=== PATIENT | female | born 1995 | race Caucasian/White ===

== ENCOUNTER 2020-02-01 04:02 | Emergency (ER) | payer OTHER ==
--- NOTE | 2020-02-01 04:10 | PDOC ---
History of Present Illness - General History Source: Patient - History of Present Illness Initial Comments: 02/01/20 04:42 24 y.o. F no significant PMHx presenting due to abdominal pain. Patient states she has been having abdominal pain for the past 3 weeks. She stated the pain is located in the lower abdomen, is sharp nonradiating and is worse upon positional changes and deep inspiration. Patient reports she had a transvaginal ultrasound at her [facility] that stated she did not have an intrauterine and there was concern for an ectopic, At this time a beta-hcg was drawn. Patient states she had 1 episode of diarrhea yesterday non bloody. Patient denies headache N/V. Patient states she has not had any bloody shows or discolored urine. Patient states her next obstetrician/gynecologist appointment is Sunday. PCP: Alvaro Specialist: Line Up Worker is Dr. Martins ([phone]) PMHx: None Meds: In Chart Allergies: NKDA 02/01/20 05:55 Is this a multiple visit Asthma Patient?: No Timing/Duration: constant Severity: mild <Eugenio Whaley - Last Filed: 02/01/20 05:51> <Tyrese Ronquillo - Last Filed: 02/01/20 09:48> - General Chief Complaint: Pain, Acute Stated Complaint: ABDOMINAL PAIN Time Seen by Provider: 02/01/20 04:42 Past History <Eugenio Whaley - Last Filed: 02/01/20 05:51> <Tyrese Ronquillo - Last Filed: 02/01/20 09:48> - Medical History Allergies/Adverse Reactions: Allergies Allergy/AdvReac Type Severity Reaction Status Date / Time No Known Allergies Allergy Verified 02/01/20 04:09 Home Medications: Ambulatory Orders NK [No Known Home Medication] 02/01/20 Review of Systems - Review of Systems Able to Perform ROS?: Yes Is the patient limited Slovak proficient: No Constitutional: No: Chills, Fever HEENTM: No: Blurred Vision, Double Vision Respiratory: No: Cough, Shortness of Breath Cardiac (ROS): No: Chest Pain, Lightheadedness ABD/GI: Yes: Other (Pain in the lower abdomen). No: Constipated, Diarrhea, Nausea, Vomiting : No: Burning, Dysuria Musculoskeletal: No: Back Pain, Joint Pain Integumentary: No: Bruising, Rash Neurological: No: Numbness, Tremors, Dizziness Hematologic/Lymphatic: No: Easy Bleeding, Easy Bruising <Eugenio Whaley - Last Filed: 02/01/20 05:51> *Physical Exam - Physical Exam General Appearance: Yes: Nourished, Appropriately Dressed. No: Apparent Distress Respiratory/Chest: positive: Lungs Clear, Normal Breath Sounds. negative: Chest Tender, Accessory Muscle Use, Crackles, Rales, Stridor, Wheezing Cardiovascular: positive: Regular Rhythm, Regular Rate. negative: Edema, JVD, Murmur Gastrointestinal/Abdominal: positive: Normal Bowel Sounds, Tender, Flat, Soft, Tenderness (suprapubic and RLQ). negative: Distended, Guarding, Rebound Musculoskeletal: positive: Normal Inspection. negative: CVA Tenderness Extremity: positive: Normal Inspection. negative: Tender, Swelling, Calf Tenderness Integumentary: positive: Normal Color, Dry, Warm Neurologic: positive: Fully Oriented, Alert, Normal Mood/Affect, Normal Response <JuddEugenio - Last Filed: 02/01/20 05:51> - Vital Signs Last Vital Signs Temp Pulse Resp BP Pulse Ox 98.4 F 74 18 99/62 100 02/01/20 06:28 02/01/20 06:28 02/01/20 06:28 02/01/20 06:28 02/01/20 06:28 <RonquilloTyrese - Last Filed: 02/01/20 09:48> ED Treatment Course - LABORATORY CBC & Chemistry Diagram: 02/01/20 05:40 02/01/20 05:40 - ADDITIONAL ORDERS Additional order review: Laboratory Results 02/01/20 02/01/20 02/01/20 07:00 05:40 05:40 PT with INR INR PTT (Actin FS) Sodium Potassium Chloride Carbon Dioxide Anion Gap BUN Creatinine Est GFR (CKD-EPI)AfAm Est GFR (CKD-EPI)NonAf Random Glucose Calcium Total Bilirubin AST ALT Alkaline Phosphatase Total Protein Albumin Beta HCG, Quant 3294.4 Urine Color Yellow Urine Appearance Clear Urine pH 8.0 Ur Specific [place] 1.005 L Urine Protein Negative Urine Glucose (UA) Negative Urine Ketones Negative Urine Blood Negative Urine Nitrite Negative Urine Bilirubin Negative Urine Urobilinogen 0.2 Ur Leukocyte Esterase Negative Blood Type O POSITIVE Antibody Screen Negative 02/01/20 02/01/20 05:40 05:40 PT with INR 12.80 INR 1.08 PTT (Actin FS) 32.3 Sodium 141 Potassium 4.8 Chloride 109 H Carbon Dioxide 28 Anion Gap 4 L BUN 8.9 Creatinine 0.7 Est GFR (CKD-EPI)AfAm 140.55 Est GFR (CKD-EPI)NonAf 121.27 Random Glucose 88 Calcium 9.0 Total Bilirubin 0.3 AST 14 L ALT 15 Alkaline Phosphatase 54 Total Protein 6.8 Albumin 3.8 Beta HCG, Quant Urine Color Urine Appearance Urine pH Ur Specific [place] Urine Protein Urine Glucose (UA) Urine Ketones Urine Blood Urine Nitrite Urine Bilirubin Urine Urobilinogen Ur Leukocyte Esterase Blood Type Antibody Screen 02/01/20 05:40 RBC 4.27 MCV 90.9 MCHC 34.6 RDW 12.8 MPV 8.3 Neutrophils % 69.2 Lymphocytes % 20.5 Monocytes % 8.6 Eosinophils % 1.4 Basophils % 0.3 - Medications Given in the ED: ED Medications Discontinued Medications Generic Name Dose Route Start Last Admin Trade Name Kevin PRN Reason Stop Dose Admin Acetaminophen 1,000 mg 02/01/20 04:19 02/01/20 05:30 Ofirmev Injection - IVPB 02/01/20 04:20 1,000 mg ONCE ONE Administration <Tyrese Ronquillo - Last Filed: 02/01/20 09:48> Medical Decision Making - Medical Decision Making 02/01/20 04:49 24 y.o. F no significant PMHx presenting due to abdominal pain. DDx: Ectopic , appendicitis, cholecystitis, IBD, gallstone, UTI, kidney stone Labs: TVUS: EKG: Dispo: 02/01/20 05:55 <Eugenio Whaley - Last Filed: 02/01/20 05:51> Discharge <Eugenio Whaley - Last Filed: 02/01/20 05:51> - Discharge Information Problems reviewed: Yes <Tyrese Ronquillo - Last Filed: 02/01/20 09:48> - Discharge Information Clinical Impression/Diagnosis: Abdominal pain during intrauterine Condition: Good Disposition: HOME - Follow up/Referral Referrals: Kemi John MD [Primary Care Provider] - - Patient Discharge Instructions Additional Instructions: You were seen in the ED for complaints of abdominal pain with . In the ED you were evaluated with urine analysis and transvaginal . You urine analysis is normal. The result of the ultrasound showed a single intrauterine gestational sac like structure with 5 weeks 1 day of gestation ( you have one sac inside your uterus, which is what you wanted). A tiny yolk sac is probably identified. No pole or heart activity could be detected. Need to follow up with serial quantitative serum beta hCG and close follow up ultrasound is recommended. They also found 8mm hypoechoic density in the left ovary likely represenitng a hemorrhagic cyst/corpus luteum cyst. Need to follow up with Obgyn. Recently, you did an ultrasound. They didn't find anything. Now they found a single gestational sac. This could be a normal progression of the . The current Beta hCG level is 3294. There does not appear to be an acute need for immediate hospitalization. You are advised to follow up with your Obgyn doctor (Lakshmi) within the next 24 hours or come back here in the next two days for a nother beta hCG blood test. Return to the ED immediately if you experience worsening abdominal pain or severe vaginal bleeding ( soaking 3 pads within 1 hour for 3 hours straight), dizziness, nausea, vomiting. La atendieron en el servicio de urgencias por quejas de dolor abdominal destinee el embarazo. En el servicio de urgencias te evaluaron con anlisis de orina y embarazo transvaginal. Parra anlisis de orina es normal. El resultado de la ecografa mostr tiffanie nathalie estructura intrauterina similar a un saco gestacional con 5 semanas y 1 da de gestacin (tienes un saco dentro de tu tero, que es lo que queras). Probablemente se identifique un pequeo saco vitelino. No se pudo detectar ningn polo o actividad cardaca . Se recomienda realizar un seguimiento con beta hCG srica cuantitativa seriada y tiffanie ecografa de seguimiento cercana. Tambin encontraron tiffanie densidad hipoecoica de 8 mm en el ovario obinna que probablemente representa un quiste hemorrgico / quiste del cuerpo lteo. Necesito hacer un seguimiento con Obgyn. Recientemente, hiciste tiffanie ecografa. No encontraron nada. Ahora encontraron un solo saco gestacional. Esta podra ser tiffanie progresin normal del embarazo. El nivel actual de Beta hCG es 3294. No parece seda tiffanie necesidad aguda de hospitalizacin inmediata. Se le recomienda hacer un seguimiento con parra mdico de Obgyn (Lakshmi) dentro de las prximas 24 horas o regresar aqu en los prximos dos [place] para hacerse otro anlisis de kindra beta hCG. Regrese al servicio de urgencias inmediatamente si experimenta un empeoramiento del dolor abdominal o sangrado vaginal darby (remojar 3 toallas sanitarias en 1 hora destinee 3 horas seguidas), mareos, nuseas, vmitos.
[2020-02-01 04:13] VITALS: BMI 21.2
[2020-02-01] MEDS ORDERED: ACETAMINOPHEN 1000 MG/100 ML VIAL (NON FORMULARY) IVPB ONE (04:19)
--- NOTE | 2020-02-01 04:46 | PDOC ---
Attending Attestation - Resident Resident Name: Eugenio Whaley - ED Attending Attestation I have performed the following: I have examined & evaluated the patient, The case was reviewed & discussed with the resident, I agree w/resident's findings & plan - HPI HPI: 02/01/20 05:52 Pt comes with lower abdominal pain. States that she alejandro to another ER 2 days ago. They told her she was . Pt continued to have pain so she went [facility] yesterday and they told her she was , and sono showed no baby in the uterus. She may have an ectopic. Pt was asked to return on Sunday. Instead, pt came here because she has continued pain, she has constipation and some diarrhea and she has gas. But she is eating the same stuff as her and he has none of this. 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 - Physicial Exam PE: 02/01/20 05:56 Normal exam gassy abdomen bloated abdomen suprapubic pain no flank pain no fever normal extremities - Medical Decision Making 02/01/20 05:57 Labs pending SONO to be done type and screen pending UA pending 02/01/20 21:33 SIGNED OUT TO DAY TEAM Discharge - Discharge Information Problems reviewed: Yes Clinical Impression/Diagnosis: Abdominal pain during intrauterine Condition: Good Disposition: HOME - Follow up/Referral Referrals: Bella Martins MD [Staff Physician] - Kemi John MD [Primary Care Provider] - - Patient Discharge Instructions Additional Instructions: You were seen in the ED for complaints of abdominal pain with . In the ED you were evaluated with urine analysis and transvaginal . You urine analysis is normal. The result of the ultrasound showed a single intrauterine gestational sac like structure with 5 weeks 1 day of gestation ( you have one sac inside your uterus, which is what you wanted). A tiny yolk sac is probably identified. No pole or heart activity could be detected. Need to follow up with serial quantitative serum beta hCG and close follow up ultrasound is recommended. They also found 8mm hypoechoic density in the left ovary likely represenitng a hemorrhagic cyst/corpus luteum cyst. Need to follow up with Obgyn. Recently, you did an ultrasound. They didn't find anything. Now they found a single gestational sac. This could be a normal progression of the . The current Beta hCG level is 3294. There does not appear to be an acute need for immediate hospitalization. You are advised to follow up with your Obgyn doctor (Lakshmi) within the next 24 hours or come back here in the next two days for a nother beta hCG blood test. Return to the ED immediately if you experience worsening abdominal pain or severe vaginal bleeding ( soaking 3 pads within 1 hour for 3 hours straight), dizziness, nausea, vomiting. La atendieron en el servicio de urgencias por quejas de dolor abdominal destinee el embarazo. En el servicio de urgencias te evaluaron con anlisis de orina y embarazo transvaginal. Parra anlisis de orina es normal. El resultado de la ecografa mostr tiffanie nathalie estructura intrauterina similar a un saco gestacional con 5 semanas y 1 da de gestacin (tienes un saco dentro de tu tero, que es lo que queras). Probablemente se identifique un pequeo saco vitelino. No se pudo detectar ningn polo o actividad cardaca . Se recomienda realizar un seguimiento con beta hCG srica cuantitativa seriada y tiffanie ecografa de seguimiento cercana. Tambin encontraron tiffanie densidad hipoecoic a de 8 mm en el ovario obinna que probablemente representa un quiste hemorrgico / quiste del cuerpo lteo. Necesito hacer un seguimiento con Obgyn. Recientemente, hiciste tiffanie ecografa. No encontraron nada. Ahora encontraron un solo saco gestacional. Esta podra ser tiffanie progresin normal del embarazo. El nivel actual de Beta hCG es 3294. No parece seda tiffanie necesidad aguda de hospitalizacin inmediata. Se le recomienda hacer un seguimiento con parra mdico de Obgyn (Lakshmi) dentro de las prximas 24 horas o regresar aqu en los prximos dos [place] para hacerse otro anlisis de kindra beta hCG. Regrese al servicio de urgencias inmediatamente si experimenta un empeoramiento del dolor abdominal o sangrado vaginal darby (remojar 3 toallas sanitarias en 1 hora destinee 3 horas seguidas), mareos, nuseas, vmitos. - Post Discharge Activity
[2020-02-01 06:29] VITALS: BP 99/62; PULSE 74; TEMP 98.4
[2020-02-01 06:52] LABS: BASO % 0.3 % (0-2.0); EOS % 1.4 % (0-4.5); HEMATOCRIT 38.9 % (32.4-45.2); HEMOGLOBIN 13.4 GM/dL (10.7-15.3); LYMPH % 20.5 % (8-40); MCH 31.4 pg (25.7-33.7); MCHC 34.6 g/dl (32.0-36.0); MEAN CELL VOLUME 90.9 fl (80-96); MEAN PLT VOLUME 8.3 fl (7.5-11.1); MONO % 8.6 % (3.8-10.2); NEUT % 69.2 % (42.8-82.8); PLATELET COUNT 273 K/MM3 (134-434); RBC 4.27 M/mm3 (3.60-5.2); RDW 12.8 % (11.6-15.6); WHITE BLOOD COUNT 8.8 K/mm3 (4.0-10.0)
[2020-02-01 06:57] LABS: ALBUMIN 3.8 g/dl (3.4-5.0); BILIRUBIN,TOTAL 0.3 mg/dL (0.2-1); BLOOD UREA NITROGEN 8.9 mg/dL (7-18); CREATININE 0.7 mg/dL (0.55-1.3); POTASSIUM 4.8 mmol/L (3.5-5.1); TOT PROT 6.8 g/dl (6.4-8.2)
[2020-02-01 07:05] LABS: INR 1.08 (0.83-1.09); PROTHROMBIN TIME (PATIENT) 12.8 SEC (9.7-13.0)
[2020-02-01 07:08] LABS: ACTIVATED PTT 32.3 SECONDS (25.2-36.5)
--- NOTE | 2020-02-01 08:11 | PDOC ---
*Physical Exam - Vital Signs Last Vital Signs Temp Pulse Resp BP Pulse Ox 98.4 F 74 18 99/62 100 02/01/20 06:28 02/01/20 06:28 02/01/20 06:28 02/01/20 06:28 02/01/20 06:28 ED Treatment Course - LABORATORY CBC & Chemistry Diagram: 02/01/20 05:40 02/01/20 05:40 - ADDITIONAL ORDERS Additional order review: Laboratory Results 02/01/20 02/01/20 02/01/20 05:40 05:40 05:40 PT with INR INR PTT (Actin FS) Sodium 141 Potassium 4.8 Chloride 109 H Carbon Dioxide 28 Anion Gap 4 L BUN 8.9 Creatinine 0.7 Est GFR (CKD-EPI)AfAm 140.55 Est GFR (CKD-EPI)NonAf 121.27 Random Glucose 88 Calcium 9.0 Total Bilirubin 0.3 AST 14 L ALT 15 Alkaline Phosphatase 54 Total Protein 6.8 Albumin 3.8 Beta HCG, Quant 3294.4 Blood Type O POSITIVE Antibody Screen Negative 02/01/20 05:40 PT with INR 12.80 INR 1.08 PTT (Actin FS) 32.3 Sodium Potassium Chloride Carbon Dioxide Anion Gap BUN Creatinine Est GFR (CKD-EPI)AfAm Est GFR (CKD-EPI)NonAf Random Glucose Calcium Total Bilirubin AST ALT Alkaline Phosphatase Total Protein Albumin Beta HCG, Quant Blood Type Antibody Screen 02/01/20 05:40 RBC 4.27 MCV 90.9 MCHC 34.6 RDW 12.8 MPV 8.3 Neutrophils % 69.2 Lymphocytes % 20.5 Monocytes % 8.6 Eosinophils % 1.4 Basophils % 0.3 - Medications Given in the ED: ED Medications Discontinued Medications Generic Name Dose Route Start Last Admin Trade Name Freq PRN Reason Stop Dose Admin Acetaminophen 1,000 mg 02/01/20 04:19 02/01/20 05:30 Ofirmev Injection - IVPB 02/01/20 04:20 1,000 mg ONCE ONE Administration Medical Decision Making - Medical Decision Making 02/01/20 09:12 UA is negative. Pending Result for transvaginal ultrasound. Discharge - Discharge Information Clinical Impression/Diagnosis: Abdominal pain during intrauterine Condition: Good Disposition: HOME - Admission No - Follow up/Referral Referrals: Kemi John MD [Primary Care Provider] - Bella Martins MD [Staff Physician] - - Patient Discharge Instructions Additional Instructions: You were seen in the ED for complaints of abdominal pain with . In the ED you were evaluated with urine analysis and transvaginal . You urine analysis is normal. The result of the ultrasound showed a single intrauterine gestational sac like structure with 5 weeks 1 day of gestation ( you have one sac inside your uterus, which is what you wanted). A tiny yolk sac is probably identified. No fe abilio pole or heart activity could be detected. Need to follow up with serial quantitative serum beta hCG and close follow up ultrasound is recommended. They also found 8mm hypoechoic density in the left ovary likely represenitng a hemorrhagic cyst/corpus luteum cyst. Need to follow up with Obgy n. Recently, you did an ultrasound. They didn't find anything. Now they found a single gestational sac. This could be a normal progression of the . The current Beta hCG level is 3294. There does not appear to be an acute need for immediate hospitalization. You are advised to follow up with your Obgyn doctor (Lakshmi) within the next 24 hours or come back here in the next two days for a nother beta hCG blood test. Return to the ED immediately if you experience worsening abdominal pain or severe vaginal bleeding ( soaking 3 pads within 1 hour for 3 hours straight), dizziness, nausea, vomiting. La atendieron en el servicio de urgencias por quejas de dolor abdominal destinee el embarazo. En el servicio de urgencias te evaluaron con anlisis de orina y embarazo transvaginal. Parra anlisis de orina es normal. El resultado de la ecografa mostr tiffanie nathalie estructura intrauterina similar a un saco gestacional con 5 semanas y 1 da de gestacin (tienes un saco dentro de tu tero, que es lo que queras). Probablemente se identifique un pequeo saco vitelino. No se pudo detectar ningn polo o actividad cardaca . Se recomienda realizar un seguimiento con beta hCG srica cuantitativa seriada y tiffanie ecografa de seguimiento cercana. Tambin encontraron tiffanie densidad hipoecoica de 8 mm en el ovario obinna que probablemente representa un quiste hemorrgico / quiste del cuerpo lteo. Necesito hacer un seguimiento con Obgyn. Recientemente, hiciste tiffanie ecografa. No encontraron nada. Ahora encontraron un solo saco gestacional. Esta podra ser tiffanie progresin normal del embarazo. El nivel actual de Beta hCG es 3294. No parece sead tiffanie necesidad aguda de hospitalizacin inmediata. Se le recomienda hacer un seguimiento con parra mdico de Obgyn (Lakshmi) dentro de las prximas 24 horas o regresar aqu en los prximos dos [place] para hacerse otro anlisis de kindra beta hCG. Regrese al servicio de urgencias inmediatamente si experimenta un empeoramiento del dolor abdominal o sangrado vaginal darby (remojar 3 toallas sanitarias en 1 hora destinee 3 horas seguidas), mareos, nuseas, vmitos. - Post Discharge Activity
[2020-02-01 09:04] LABS: URINE APPEARANCE CLEAR; URINE BILIRUBIN NEGATIVE (NEGATIVE); URINE COLOR YELLOW; URINE GLUCOSE (UA) NEGATIVE (NEGATIVE); URINE KETONE NEGATIVE (NEGATIVE); URINE LEUK ESTERASE NEGATIVE (NEGATIVE); URINE NITRITE NEGATIVE (NEGATIVE); URINE PROTEIN NEGATIVE (NEGATIVE); URINE UROBILINOGEN 0.2 mg/dL (0.2-1.0)
== END 2020-02-01 10:33 | disposition home or self-care (01) ==
LOC: JER 04:02
PROC: 3E0333Z Introduction of Anti-inflammatory into Peripheral Vein, Percutaneous Approach (ICD-10-PCS; principal; 2020-02-01)
DX: O26.891 Other specified pregnancy related conditions, first trimester (principal)
CPT/HCPCS: 36415; 76817-TC; 80053; 81003; 84702; 85025; 85610; 85730; 86850; 86900; 86901; 99284-25; J0131